=== PATIENT | male | born 1980 | race Caucasian/White ===

== ENCOUNTER 2020-08-10 16:50 | Emergency (ER) | payer BC ==
[2020-08-10] MEDS ORDERED: Sodium Chloride 0.9% 10 ML Syringe FLUSH PRN (17:01)
[2020-08-10] MEDS ORDERED: Sodium Chloride 0.9% 2.5 ML Syringe FLUSH PRN (17:01)
[2020-08-10] MEDS ORDERED: Calcium Gluconate 10% 1 GM/10 ML SDV IVPUSH ONE (17:06)
[2020-08-10] MEDS ORDERED: Iopamidol 755 MG/ML 500 ML Multipack Bottle IVPUSH ONE (17:26)
[2020-08-10 17:32] LABS: BLOOD UREA NITROGEN,BUN 18 mg/dL (7.0-18.0); CARBON DIOXIDE,CO2 20.5 mmol/L (21.0-32.0); CHLORIDE,CL 101 mmol/L (98-107); GLUCOSE RANDOM 133 mg/dL (74-106); LIPASE 169 U/L (73-393); POTASSIUM,K 3.1 mmol/L (3.5-5.1); SODIUM,NA 138 mmol/L (136-148)
[2020-08-10] MEDS ORDERED: Potassium Chloride 20 MEQ Tab.ER PO ONE (17:34)
--- NOTE | 2020-08-10 18:00 | PCM.SN.2 ---
#1 Interpretation EKG Date: 08/10/20 Time: 16:57 Rhythm: NSR Rate (Beats/Min): 80 [place]: Normal P-Wave: Present QRS: Normal ST-T: Normal QT: Normal Comparison: NA - No Prior EKG EKG Interpretation Comments: Sinus Rhythm with S1Q3T3 with T wave inversions in III and aVF #2 Interpretation EKG Date: 08/09/20 Time: 17:06 Rhythm: NSR Rate (Beats/Min): 74 [place]: Normal P-Wave: Present QRS: Normal ST-T: Normal QT: Normal Comparison: No Change EKG Interpretation Comments: Sinus Rhythm with S1Q3T3 with T wave inversions in III and aVF #3 Interpretation EKG Date: 08/09/20 Time: 17:36 Rhythm: NSR Rate (Beats/Min): 81 [place]: Normal P-Wave: Present QRS: Normal ST-T: Normal QT: Normal Comparison: No Change EKG Interpretation Comments: Sinus Rhythm with S1Q3T3 with T wave inversions in III and aVF
--- NOTE | 2020-08-10 18:04 | EDM.PDOC ---
ED HPI GENERAL MEDICAL PROBLEM - General Chief Complaint: Chest Pain Stated Complaint: CHEST PAIN Time Seen by Provider: 08/10/20 16:53 Source of Information: Reports: Patient History Limitations: Reports: No Limitations - History of Present Illness INITIAL COMMENTS - FREE TEXT/NARRATIVE: HISTORY AND PHYSICAL: History of present illness: Patient is a 40-year-old male who presents to the ED today with concern of epigastric abdominal pain that came at 1 PM today. Patient states he was sitting at home and had just finished drinking 2 glasses of milk and a cheese stick when he began feeling sharp upper abdominal pain and thought it was related to indigestion and gas. Patient states that the pain intensified and radiates into his lower abdomen/back. He denies any associated symptoms. Patient states he does drink alcohol daily and has 2 mixed drinks with whiskey and some beers daily but feels he is unable to quantify how much but denies ever having withdraw symptoms. Denies any other health history. Patient denies fever, chills, shortness of breath, or cough. Denies headache, neck stiff ness, change in vision, syncope, or near syncope. Denies nausea, vomiting, diarrhea, constipation, or dysuria. Has not noted any blood in urine or stool. Patient has been eating and drinking appropriately. Review of systems: As per history of present illness and below otherwise all systems reviewed and negative. Past medical history: As per history of present illness and as reviewed below otherwise noncontributory. Surgical history: As per history of present illness and as reviewed below otherwise noncontributory. Social history: See social history for further information Family history: As per history of present illness and as reviewed below otherwise noncon tributory. Physical exam: General: Patient is alert, oriented, and in no acute distress. Patient laying on exam table, does appear flushed but not diaphoretic and holding upper abdomen. Vitals stable, but hypertensive 180s/110s. Patient does have a positive trousseau sign with bp cuff inflation. HEENT: Atraumatic, normocephalic, pupils equal and reactive bilaterally, negative for conjunctival pallor or scleral icterus, mucous membranes moist, TMs normal bilaterally, throat clear, neck supple, nontender, trachea midline. No drooling or trismus noted. No meningeal signs. No hot potato voice noted. Lungs: Clear to auscultation, breath sounds equal bilaterally, chest nontender. Heart: S1S2, regular rate and rhythm without overt murmur Abdomen: Soft, nondistended, nontender. Negative schwab sign. Negative rebound. No pulsatile mass. Negative for masses or hepatosplenomegaly. Negative for costovertebral tenderness. Pelvis: Stable nontender. Genitourinary: Deferred. Rectal: Deferred. Skin: Intact, warm, dry. No lesions or rashes noted. Extremities: Atraumatic, negative for cords or calf pain. Neurovascular unremarkable. Neuro: Awake, alert, oriented. Cranial nerves II through XII unremarkable. Cerebellum unremarkable. Motor and sensory unremarkable throughout. Exam nonfocal. Notes: Dr. Arriaza directly involved in patient care. See Dr. Arriaza dictation for EKG interpretations. Patient initially hypertensive 180s/110s on initial exam. BP rechecked 20 mins later and has come down to 150s/90s without intervention. When patient's blood pressure was being evaluated, he did show a positive trousseau sign sign, calcium given. Upon reevaluation, patient is symptom free (was only symptomatic the first 10 minutes in the ED and remained symptom free throughout entire stay in ED) and no longer having abdominal pain. Initial trop negative and repeat trop negative. BP 140s/90s at time of discharge without intervention. Admission for observation was offered to patient but he declines at this time. All risks vs benefits discussed with patient and expresses understanding. Strict return precautions thoroughly discussed with patient. Voices understanding and is agreeable to plan of care. Denies any further questions or concerns at this time. Diagnostics: EKG x 4, CBC, CMP, UA, ddimer, Lipase, Pt/inr, PTT, CXR, Trop x 2, chest/Abd/pelvic CT angio Therapeutics: Saline lock, GI cocktail, calcium gluconate Prescription: None Impression: Abdominal pain, unspecified, improved Plan: 1. You can alternate ibuprofen and Tylenol as directed for pain and discomfort. 2. Follow up with your primary care provider as discussed. Return to the ED as needed and as discussed. Definitive disposition and diagnosis as appropriate pending reevaluation and review of above. sternum Pain Score (Numeric/FACES): 10 - Related Data Allergies Allergy/AdvReac Type Severity Reaction Status Date / Time No Known Allergies Allergy Verified 08/10/20 16:59 Home Meds: Home Meds . [No Known Home Meds] 12/12/14 [History] Past Medical History - Past Health History Medical/Surgical History: Denies Medical/Surgical History - Infectious Disease History Infectious Disease History: Reports: Chicken Pox ED ROS GENERAL - Review of Systems Review Of Systems: Comprehensive ROS is negative, except as noted in HPI. ED EXAM, GENERAL - Physical Exam Exam: See Below (see dictation) Course - Vital Signs Last Recorded V/S: Last Vital Signs Temp 97.6 F 08/10/20 16:56 Pulse 82 08/10/20 20:23 Resp 18 08/10/20 20:23 BP 157/99 H 08/10/20 20:23 Pulse Ox 96 08/10/20 20:23 - Orders/Labs/Meds Orders: Active Orders 24 hr Category Date Time Status Cardiac Monitoring [RC] . DIRECTED Care 08/10/20 17:01 Active EKG Documentation Completion [RC] STAT Care 08/10/20 17:01 Active EKG Documentation Completion [RC] STAT Care 08/10/20 20:19 Active Ang Abdomen [CT] Stat Exams 08/10/20 17:02 Taken Sodium Chloride 0.9% [Saline Flush] Med 08/10/20 17:01 Active 10 ml FLUSH ASDIRECTED PRN Sodium Chloride 0.9% [Saline Flush] Med 08/10/20 17:01 Active 2.5 ml FLUSH ASDIRECTED PRN Saline Lock Insert [OM.PC] Stat Oth 08/10/20 17:01 Ordered Medication Orders Sodium Chloride (Saline Flush) 10 ml FLUSH ASDIRECTED PRN PRN Reason: Keep Vein Open Last Admin: 08/10/20 17:41 Dose: 10 ml Documented by: ALISHA Sodium Chloride (Saline Flush) 2.5 ml FLUSH ASDIRECTED PRN PRN Reason: Keep Vein Open Last Admin: 08/10/20 17:41 Dose: 2.5 ml Documented by: ALISHA Labs: Laboratory Tests 08/10/20 08/10/20 08/10/20 Range/Units 17:00 17:00 17:00 WBC 12.68 H (4.0-11.0) K/uL RBC 5.80 (4.50-5.90) M/uL Hgb 17.3 H (13.0-17.0) g/dL Hct 49.9 (38.0-50.0) % MCV 86.0 (80.0-98.0) fL MCH 29.8 (27.0-32.0) pg MCHC 34.7 (31.0-37.0) g/dL RDW Std Deviation 39.8 (28.0-62.0) fl RDW Coeff of Leo 13 (11.0-15.0) % Plt Count 312 (150-400) K/uL MPV 10.50 (7.40-12.00) fL Neut % (Auto) 66.2 (48.0-80.0) % Lymph % (Auto) 22.7 (16.0-40.0) % [place] % (Auto) 8.1 (0.0-15.0) % Eos % (Auto) 2.2 (0.0-7.0) % Baso % (Auto) 0.8 (0.0-1.5) % Neut # (Auto) 8.4 H (1.4-5.7) K/uL Lymph # (Auto) 2.9 H (0.6-2.4) K/uL [place] # (Auto) 1.0 H (0.0-0.8) K/uL Eos # (Auto) 0.3 (0.0-0.7) K/uL Baso # (Auto) 0.1 (0.0-0.1) K/uL Nucleated RBC % 0.0 /100WBC Nucleated RBCs # 0 K/uL INR APTT (18.6-31.3) SEC D-Dimer, Quantitative 0.21 (0.0-0.50) mg/L FEU Sodium 138 (136-148) mmol/L Potassium 3.1 L (3.5-5.1) mmol/L Chloride 101 (98-107) mmol/L Carbon Dioxide 20.5 L (21.0-32.0) mmol/L BUN 18 (7.0-18.0) mg/dL Creatinine 1.3 (0.8-1.3) mg/dL Est Cr Clr Drug Dosing 82.08 mL/min Estimated GFR (MDRD) > 60.0 ml/min Glucose 133 H (74-106) mg/dL Calcium 9.3 (8.5-10.1) mg/dL Total Bilirubin 0.4 (0.2-1.0) mg/dL AST 36 (15-37) IU/L ALT 83 H (14-63) IU/L Alkaline Phosphatase 96 (46-116) U/L Troponin I < 0.050 (0.000-0.056) ng/mL Total Protein 8.1 (6.4-8.2) g/dL Albumin 4.3 (3.4-5.0) g/dL Globulin 3.8 (2.6-4.0) g/dL Albumin/Globulin Ratio 1.1 (0.9-1.6) Lipase 169 (73-393) U/L Urine Color Urine Appearance Urine pH (5.0-8.0) Ur Specific [place] (1.001-1.035) Urine Protein (NEGATIVE) mg/dL Urine Glucose (UA) (NEGATIVE) mg/dL Urine Ketones (NEGATIVE) mg/dL Urine Occult Blood (NEGATIVE) Urine Nitrite (NEGATIVE) Urine Bilirubin (NEGATIVE) Urine Urobilinogen (<2.0) EU/dL Ur Leukocyte Esterase (NEGATIVE) 08/10/20 08/10/20 08/10/20 Range/Units 17:00 17:50 19:05 WBC (4.0-11.0) K/uL RBC (4.50-5.90) M/uL Hgb (13.0-17.0) g/dL Hct (38.0-50.0) % MCV (80.0-98.0) fL MCH (27.0-32.0) pg MCHC (31.0-37.0) g/dL RDW Std Deviation (28.0-62.0) fl RDW Coeff of [place] (11.0-15.0) % Plt Count (150-400) K/uL MPV (7.40-12.00) fL Neut % (Auto) (48.0-80.0) % Lymph % (Auto) (16.0-40.0) % [place] % (Auto) (0.0-15.0) % Eos % (Auto) (0.0-7.0) % Baso % (Auto) (0.0-1.5) % Neut # (Auto) (1.4-5.7) K/uL Lymph # (Auto) (0.6-2.4) K/uL [place] # (Auto) (0.0-0.8) K/uL Eos # (Auto) (0.0-0.7) K/uL Baso # (Auto) (0.0-0.1) K/uL Nucleated RBC % /100WBC Nucleated RBCs # K/uL INR 0.98 APTT 22.2 (18.6-31.3) SEC D-Dimer, Quantitative (0.0-0.50) mg/L FEU Sodium (136-148) mmol/L Potassium (3.5-5.1) mmol/L Chloride (98-107) mmol/L Carbon Dioxide (21.0-32.0) mmol/L BUN (7.0-18.0) mg/dL Creatinine (0.8-1.3) mg/dL Est Cr Clr Drug Dosing mL/min Estimated GFR (MDRD) ml/min Glucose (74-106) mg/dL Calcium (8.5-10.1) mg/dL Total Bilirubin (0.2-1.0) mg/dL AST (15-37) IU/L ALT (14-63) IU/L Alkaline Phosphatase (46-116) U/L Troponin I < 0.050 (0.000-0.056) ng/mL Total Protein (6.4-8.2) g/dL Albumin (3.4-5.0) g/dL Globulin (2.6-4.0) g/dL Albumin/Globulin Ratio (0.9-1.6) Lipase (73-393) U/L Urine Color YELLOW Urine Appearance CLEAR Urine pH 6.5 (5.0-8.0) Ur Specific [place] <= 1.005 (1.001-1.035) Urine Protein NEGATIVE (NEGATIVE) mg/dL Urine Glucose (UA) NEGATIVE (NEGATIVE) mg/dL Urine Ketones NEGATIVE (NEGATIVE) mg/dL Urine Occult Blood NEGATIVE (NEGATIVE) Urine Nitrite NEGATIVE (NEGATIVE) Urine Bilirubin NEGATIVE (NEGATIVE) Urine Urobilinogen 0.2 (<2.0) EU/dL Ur Leukocyte Esterase NEGATIVE (NEGATIVE) Meds: Medications Generic Name Dose Route Start Last Admin Trade Name Freq PRN Reason Stop Dose Admin Sodium Chloride 10 ml 08/10/20 17:01 08/10/20 17:41 Saline Flush FLUSH 10 ml ASDIRECTED PRN Administration Keep Vein Open Sodium Chloride 2.5 ml 08/10/20 17:01 08/10/20 17:41 Saline Flush FLUSH 2.5 ml ASDIRECTED PRN Administration Keep Vein Open Discontinued Medications Generic Name Dose Route Start Last Admin Trade Name Freq PRN Reason Stop Dose Admin Calcium Gluconate 1 gm 08/10/20 17:06 08/10/20 17:41 Calcium Gluconate IVPUSH 08/10/20 17:07 1 gm ONETIME ONE Administration Al Hydroxide/Mg Hydroxide 15 0 ml 08/10/20 19:08 08/10/20 19:18 ml/ Metoclopramide HCl 5 mg/ PO 08/10/20 19:09 1 each Lidocaine HCl 5 ml ONETIME ONE Administration Iopamidol 100 ml 08/10/20 17:26 08/10/20 17:27 Isovue Multipack-370 (76%) IVPUSH 08/10/20 17:27 100 ml ONETIME ONE Administration Potassium Chloride 40 meq 08/10/20 17:34 08/10/20 17:43 Klor-Con M20 PO 08/10/20 17:35 40 meq ONETIME ONE Administration Departure - Departure Time of Disposition: 20:17 Disposition: Home, Self-Care 01 Clinical Impression: Abdominal pain Qualifiers: Abdominal location: epigastric Qualified Code(s): R10.13 - Epigastric pain - Discharge Information Referrals: Tim Rodriguez MD [Primary Care Provider] - Forms: ED Department Discharge Additional Instructions: The following information is given to patients seen in the emergency department who are being discharged to home. This information is to outline your options for follow-up care. We provide all patients seen in our emergency department with a follow-up referral. The need for follow-up, as well as the timing and circumstances, are variable depending upon the specifics of your emergency department visit. If you don't have a primary care physician on staff, we will provide you with a referral. We always advise you to contact your personal physician following an emergency department visit to inform them of the circumstance of the visit and for follow-up with them and/or the need for any referrals to a consulting specialist. The emergency department will also refer you to a specialist when appropriate. This referral assures that you have the opportunity for follow-up care with a specialist. All of these measure are taken in an effort to provide you with optimal care, which includes your follow-up. Under all circumstances we always encourage you to contact your private physician who remains a resource for coordinating your care. When calling for follow-up care, please make the office aware that this follow-up is from your recent emergency room visit. If for any reason you are refused follow-up, please contact the [facility] Emergency Department at and asked to speak to the emergency department charge nurse. [facility] [address] [address] [facility] [address] [place] [id number] 1. You can alternate ibuprofen and tylenol as directed for pain and discomfort. 2. Follow up with your primary care provider as discussed. Return to the ED as needed and as discussed. Sepsis Event Note (ED) - Evaluation Sepsis Screening Result: No Definite Risk - Focused Exam Vital Signs: Vital Signs Temp Pulse Resp BP Pulse Ox 08/10/20 20:23 82 18 157/99 H 96 08/10/20 19:20 96 17 144/92 H 97 08/10/20 17:51 85 20 176/96 H 95 08/10/20 17:04 83 155/96 H 100 08/10/20 16:56 97.6 F 79 20 182/111 H 100 - My Orders Last 24 Hours: My Active Orders 08/10/20 17:01 Cardiac Monitoring [RC] . DIRECTED EKG Documentation Completion [RC] STAT Sodium Chloride 0.9% [Saline Flush] 10 ml FLUSH ASDIRECTED PRN Sodium Chloride 0.9% [Saline Flush] 2.5 ml FLUSH ASDIRECTED PRN Saline Lock Insert [OM.PC] Stat 08/10/20 17:02 Ang Abdomen [CT] Stat 08/10/20 20:19 EKG Documentation Completion [RC] STAT - Assessment/Plan Last 24 Hours: My Active Orders 08/10/20 17:01 Cardiac Monitoring [RC] . DIRECTED EKG Documentation Completion [RC] STAT Sodium Chloride 0.9% [Saline Flush] 10 ml FLUSH ASDIRECTED PRN Sodium Chloride 0.9% [Saline Flush] 2.5 ml FLUSH ASDIRECTED PRN Saline Lock Insert [OM.PC] Stat 08/10/20 17:02 Ang Abdomen [CT] Stat 08/10/20 20:19 EKG Documentation Completion [RC] STAT
--- NOTE | 2020-08-10 18:25 | CR ---
INDICATION: Chest pain and SOB. TECHNIQUE: Portable AP image of the chest. COMPARISON: 02/20/2010. FINDINGS: Lungs and pleural spaces clear. Heart, mediastinum and pulmonary vessels normal. No significant osseous abnormality. IMPRESSION: Negative chest. Dictated by Kun Costa MD @ Aug 10 2020 6:18PM Signed by Dr. Kun Costa @ Aug 10 2020 6:23PM
--- NOTE | 2020-08-10 18:35 | CT ---
INDICATION: Chest pain and diaphoresis. Rule out aortic dissection. TECHNIQUE: Volumetric helical scanning of the chest and abdomen performed with 100 cc of Isovue 370 contrast material IV, timing optimized for aortic opacification. Coronal and sagittal reconstructions were obtained. COMPARISON: None. FINDINGS: The aorta is well opacified. The aorta is normal in caliber with no evidence of dissection. The heart size is normal. The lungs are clear. A noncalcified 7 x 3 mm right apical nodular density is demonstrated on image 151 of series 401. No airway abnormality is evident. No pleural effusion is demonstrated. No axillary, mediastinal or hilar adenopathy is apparent. The liver is normal in size, shape and attenuation. No bile duct dilation is evident. The spleen is within normal limits. The adrenal glands are unremarkable. The pancreas is within normal limits. The kidneys are unremarkable. No lymphadenopathy is evident. The visualized bowel is unremarkable. No free fluid is evident. IMPRESSION: 1. Negative for aortic dissection. 2. Clear lungs. 3. Noncalcified 7 x 3 mm right apical nodule. Follow up in accordance with Fleischner Society Guidelines (see below) is recommended. FLEISCHNER SOCIETY GUIDELINES: LOW RISK: - nodule less than 6 mm: No follow-up needed. - nodule 6-8 mm: Initial follow-up CT at 6-12 months and then at 18-24 months if no change. - nodule greater than 8 mm: Follow-up CTs at around 3, 9, and 24 months. Dynamic contrast-enhanced CT, PET, and/or biopsy. MULTIPLE LOW RISK: - nodule less than 6 mm: No follow-up needed. - nodule 6-8 mm: CT at 3-6 months, then consider CT at 18-24 months. - nodule greater than 8 mm: CT at 3-6 months, then consider CT at 18-24 months. HIGH RISK: - nodule less than 6 mm: Follow-up at 12 months. If no change, no further imaging needed. - nodule 6-8 mm: Initial follow-up CT at 3-6 months and then at 9-12 and 24 months if no change. - nodule greater than 8 mm: Follow-up CTs at around 3, 9, and 24 months. Dynamic contrast-enhanced CT, PET, and/or biopsy. MULTIPLE HIGH RISK: - nodule less than 6 mm: Optional CT at 12 months. - nodule 6-8 mm: CT at 3-6 months, then at 18-24 months. - nodule greater than 8 mm: CT at 3-6 months, then at 18-24 months. HIGH RISK is defined as one or more of the following: - at least 20 pack-year smoking history or equivalent second-hand exposure. - personal history of cancer or family history of lung cancer. - occupational exposure (asbestos, beryllium, silica, uranium, radon) - chronic interstitial/fibrotic lung disease. Please note that all CT scans at this facility use dose modulation, iterative reconstruction, and/or weight-based dosing when appropriate to reduce radiation dose to as low as reasonably achievable. Dictated by Kun Costa MD @ Aug 10 2020 6:23PM Signed by Dr. Kun Costa @ Aug 10 2020 6:33PM
[2020-08-10] MEDS ORDERED: Alum Hydrox/Mag Hydrox/Simeth 15 ML, Metoclopramide 5 MG, Lidocaine 2% 5 ML PO ONE ×3 (19:08)
[2020-08-10 20:24] VITALS: BP 157/99; PULSE 82
--- NOTE | 2020-08-10 21:07 | PCM.SN.2 ---
- Free Text/Narrative Note: EKG sinus rhythm this was performed 08/10/2050 at 2050 hrs. Heart rate is 74 axis was 4 IN interval 171 QT interval 409 there is QRS that appears pretty normal with ST and T normal. Compared to 3 prior EKGs done since arrival there was a little fluctuation in the size of the T wave in the lateral precordium but it did not correlate with any pain episodes and he has 2 - troponins.. Impression this EKG does not demonstrate any injury
--- NOTE | 2020-08-15 08:09 | CT ---
EXAM DATE: 08/10/20 PATIENT'S AGE: 40 Patient: LIUDMILA EID Facility: [facility] Site . Site : 1980 Study: CT-Chest Angio WHOLE AORTA-08/10/2020 5:42:30 PM Ordering Physician: Александр Weir Final Report: INDICATION: Chest pain and diaphoresis. Rule out aortic dissection. TECHNIQUE: Volumetric helical scanning of the chest and abdomen performed with 100 cc of Isovue 370 contrast material IV, timing optimized for aortic opacification. Coronal and sagittal reconstructions were obtained. COMPARISON: None. FINDINGS: The aorta is well opacified. The aorta is normal in caliber with no evidence of dissection. The heart size is normal. The lungs are clear. A noncalcified 7 x 3 mm right apical nodular density is demonstrated on image 151 of series 401. No airway abnormality is evident. No pleural effusion is demonstrated. No axillary, mediastinal or hilar adenopathy is apparent. The liver is normal in size, shape and attenuation. No bile duct dilation is evident. The spleen is within normal limits. The adrenal glands are unremarkable. The pancreas is within normal limits. The kidneys are unremarkable. No lymphadenopathy is evident. The visualized bowel is unremarkable. No free fluid is evident. IMPRESSION: 1. Negative for aortic dissection. 2. Clear lungs. 3. Noncalcified 7 x 3 mm right apical nodule. Follow up in accordance with Fleischner Society Guidelines (see below) is recommended. FLEISCHNER SOCIETY GUIDELINES: LOW RISK: - nodule less than 6 mm: No follow-up needed. - nodule 6-8 mm: Initial follow-up CT at 6-12 months and then at 18-24 months if no change. - nodule greater than 8 mm: Follow-up CTs at around 3, 9, and 24 months. Dynamic contrast-enhanced CT, PET, and/or biopsy. MULTIPLE LOW RISK: - nodule less than 6 mm: No follow-up needed. - nodule 6-8 mm: CT at 3-6 months, then consider CT at 18-24 months. - nodule greater than 8 mm: CT at 3-6 months, then consider CT at 18-24 months. HIGH RISK: - nodule less than 6 mm: Follow-up at 12 months. If no change, no further imaging needed. - nodule 6-8 mm: Initial follow-up CT at 3-6 months and then at 9-12 and 24 months if no change. - nodule greater than 8 mm: Follow-up CTs at around 3, 9, and 24 months. Dynamic contrast-enhanced CT, PET, and/or biopsy. MULTIPLE HIGH RISK: - nodule less than 6 mm: Optional CT at 12 months. - nodule 6-8 mm: CT at 3-6 months, then at 18-24 months. - nodule greater than 8 mm: CT at 3-6 months, then at 18-24 months. HIGH RISK is defined as one or more of the following: - at least 20 pack-year smoking history or equivalent second-hand exposure. - personal history of cancer or family history of lung cancer. - occupational exposure (asbestos, beryllium, silica, uranium, radon) - chronic interstitial/fibrotic lung disease. Please note that all CT scans at this facility use dose modulation, iterative reconstruction, and/or weight-based dosing when appropriate to reduce radiation dose to as low as reasonably achievable. Dictated by Kun Costa MD @ Aug 10 2020 6:23PM Signed by: Kun Costa MD @08/10/2020 6:33:53 PM (Electronic Signature) Report Signed by Proxy. SUSHMA
== END 2020-08-10 21:38 | disposition home or self-care (01) ==
LOC: MW.ED 16:50
DX: R10.13 Epigastric pain (principal)
CPT/HCPCS: 36415; 71045; 71275; 74175; 80053; 81003; 83690; 84484; 85025; 85379; 85610; 85730; 93005; 96374; 99284; A9270; J0610; Q9967; 93010

== ENCOUNTER 2022-11-08 06:46 | Day surgery (SDC) | payer BC ==
[~2022-11-08 06:46] MED LIST: Lactated Ringers 1,000 ML IV SCH
[2022-11-08] MEDS ORDERED: Morphine 2 MG/ML SYRINGE IVPUSH PRN (07:23)
[2022-11-08] MEDS ORDERED: Lidocaine 1% 20 ML MDV ONE (07:23)
[2022-11-08] MEDS ORDERED: Metoclopramide 10 MG/2 ML SDV IVPUSH PRN (07:23)
[2022-11-08] MEDS ORDERED: Ondansetron 4 MG/2 ML SDV IVPUSH PRN (07:23)
[2022-11-08] MEDS ORDERED: fentaNYL 50 MCG/ML SDV IVPUSH PRN (07:23)
[2022-11-08] MEDS ORDERED: HYDROmorphone 1 MG/ML Syringe IVPUSH PRN (07:23)
[2022-11-08] MEDS ORDERED: Bupivacaine 0.5% 30 ML SDV ONE (07:23)
[2022-11-08] MEDS ORDERED: Naloxone 0.4 MG/ML SDV IVPUSH PRN (07:23)
[2022-11-08] MEDS ORDERED: Albuterol 0.083% 2.5 MG/3 ML Neb Soln NEB PRN (07:23)
[2022-11-08] MEDS ORDERED: Ondansetron 4 MG/2 ML SDV ONE (07:27)
[2022-11-08] MEDS ORDERED: Lidocaine 1% 5 ML VIAL ONE (07:27)
[2022-11-08] MEDS ORDERED: Propofol 200 MG/20 ML SDV ONE (07:28)
[2022-11-08] MEDS ORDERED: fentaNYL 100 MCG/2 ML SDV ONE (07:28)
[2022-11-08] MEDS ORDERED: Midazolam 1 MG/ML 2 ML SDV ONE (07:43)
[2022-11-08] MEDS ORDERED: propofoL 0 ML ONE (08:05)
[2022-11-08] MEDS ORDERED: Dexamethasone 4 MG/ML 5 ML MDV ONE (08:14)
[2022-11-08] MEDS ORDERED: Ketorolac 30 MG/ML SDV ONE (08:14)
[2022-11-08] MEDS ORDERED: Acetaminophen/HYDROcodone 325-10 MG Tab PO PRN (08:56)
[2022-11-08] MEDS ORDERED: Lactated Ringers 1,000 ML IV SCH (09:00)
[2022-11-08 09:20] VITALS: BP 127/87; PULSE 66
== END 2022-11-08 09:37 | disposition home or self-care (01) ==
LOC: MW.SDS 06:46
PROVIDERS: ATTEND Surgery
DX: L72.0 Epidermal cyst (principal); K21.9 Gastro-esophageal reflux disease without esophagitis; Z79.899 Other long term (current) drug therapy; Z87.891 Personal history of nicotine dependence
CPT/HCPCS: 21552; J1100; J1885; J2250; J2405; J2704; J3010; J3490; J7120

== ENCOUNTER 2025-03-27 12:49 | Emergency (ER) | payer BC ==
[2025-03-27] MEDS ORDERED: Sodium Chloride 0.9% 2.5 ML Syringe FLUSH PRN ×2 (13:01→13:03)
[2025-03-27] MEDS ORDERED: Sodium Chloride 0.9% 10 ML Syringe FLUSH PRN ×2 (13:01→13:03)
[2025-03-27 13:14] LABS: BASOPHILS ABSOLUTE AUTO 0.11 K/uL (0.00-0.20); BASOPHILS PERCENT AUTO 1.1 % (0.0-1.0); EOSINOPHILS ABSOLUTE AUTO 0.20 K/uL (0.00-0.45); EOSINOPHILS PERCENT AUTO 2.0 % (0.0-6.0); IMMATURE GRAN ABSOLUTE AUTO 0.04 K/uL (0.00-0.05); IMMATURE GRAN PERCENT AUTO 0.4 % (0.0-0.4); LYMPHOCYTES ABSOLUTE AUTO 2.75 K/uL (1.00-4.80); LYMPHOCYTES PERCENT AUTO 26.9 % (24.0-44.0); MEAN PLATELET VOLUME 10.6 fL (9.4-12.4); MONOCYTES ABSOLUTE AUTO 0.86 K/uL (0.00-0.80); MONOCYTES PERCENT AUTO 8.4 % (0.0-8.0); NEUTROPHILS ABSOLUTE AUTO 6.26 K/uL (1.80-7.70); NEUTROPHILS PERCENT AUTO 61.2 % (41.0-71.0); NRBC ABSOLUTE 0.00 K/uL (0.00-0.02); NRBC PERCENT 0.0 /100WBC (0.0-0.2); PLATELET COUNT,PLT 304 K/uL (150-400); RED BLOOD CELL COUNT 5.76 M/uL (4.52-5.90); WHITE BLOOD CELL COUNT,WBC 10.22 K/uL (3.9-11.3)
[2025-03-27 13:22] LABS: D-DIMER QUANTITATIVE 0.24 mg/L FEU (0.00-0.50); INR 0.98 (0.86-1.11)
[2025-03-27] MEDS: Ondansetron 4 MG/2 ML SDV IVPUSH ONE (13:30)
[2025-03-27 13:53] LABS: A/G RATIO 1.2 (0.9-1.6); ALANINE AMINOTRANSFERASE,ALT 61 IU/L (14-63); ASPARTATE AMNIOTRANSFERASE,AST 43 IU/L (15-37); BILIRUBIN TOTAL 0.7 mg/dL (0.2-1.0); BLOOD UREA NITROGEN,BUN 14 mg/dL (7.0-18.0); CARBON DIOXIDE,CO2 24.5 mmol/L (21.0-32.0); CHLORIDE,CL 103 mmol/L (98-107); CREATININE 1.4 mg/dL (0.8-1.3); GLUCOSE RANDOM 144 mg/dL (74-106); POTASSIUM,K 3.5 mmol/L (3.5-5.1); PRO B-TYPE NATRIUR PEPT,BNPPRO 31 pg/mL (0-125); PROTEIN TOTAL,TP 7.8 g/dL (6.4-8.2); SODIUM,NA 143 mmol/L (136-148); TSH ULTRASENSITIVE 2.09 uIU/mL (0.36-3.74)
[2025-03-27 14:04] LABS: ESTIMATED GFR 63 mL/min (>60)
[2025-03-27] MEDS: Iopamidol 755 MG/ML 500 ML Multipack Bottle IVPUSH STA (14:18)
[2025-03-27 15:46] VITALS: BP 144/91
[2025-03-27 17:53] VITALS: PULSE 63
== END 2025-03-27 17:58 | disposition home or self-care (01) ==
LOC: MW.ED 12:49
DX: K80.20 Calculus of gallbladder without cholecystitis without obstruction (principal); R07.9 Chest pain, unspecified; E86.0 Dehydration; K21.9 Gastro-esophageal reflux disease without esophagitis; Z79.899 Other long term (current) drug therapy; Z75.3 Unavailability and inaccessibility of health-care facilities
CPT/HCPCS: 36415; 71045; 71275; 74174; 76705; 80053; 83690; 83735; 83880; 84443; 84484; 85025; 85379; 85610; 93005; 96361; 96374; 96375; 99285; A9270; J2270; J2405; J7030; Q9967; 93010; 99284

== ENCOUNTER 2025-04-01 06:41 | Day surgery (SDC) | payer BC ==
[2025-04-01] MEDS: Lactated Ringers 1,000 ML IV SCH (07:00)
[2025-04-01] MEDS ORDERED: dexmedeTOMIDine HCl 200 MCG/2 ML SDV ONE (08:18)
[2025-04-01] MEDS ORDERED: propofoL 500 MG/50 ML 50 ML ONE (08:18)
[2025-04-01] MEDS ORDERED: Lactated Ringers 1,000 ML IV SCH (08:30)
[2025-04-01 08:51] VITALS: BP 116/76; PULSE 71
== END 2025-04-01 08:58 | disposition home or self-care (01) ==
LOC: MW.SDS 06:41
PROVIDERS: ATTEND Surgery
DX: K29.50 Unspecified chronic gastritis without bleeding (principal); K21.00 Gastro-esophageal reflux disease with esophagitis, without bleeding; Z79.899 Other long term (current) drug therapy
CPT/HCPCS: 43239; J2704; J7120; 00731

== ENCOUNTER 2025-04-11 06:31 | Day surgery (SDC) | payer BC ==
[~2025-04-11 06:31] MED LIST changes: +Albuterol 0.083% 2.5 MG/3 ML Neb Soln NEB PRN; -Lactated Ringers 1,000 ML IV SCH; +Naloxone 0.4 MG/ML SDV IVPUSH PRN; +Ondansetron 4 MG/2 ML SDV IVPUSH PRN; +fentaNYL 50 MCG/ML SDV IVPUSH PRN
[2025-04-11] MEDS: Lactated Ringers 1,000 ML IV SCH (07:05)
[2025-04-11] MEDS ORDERED: Succinylcholine/Sod PF 100 MG/5 ML SYRINGE IV ONE (07:11)
[2025-04-11] MEDS ORDERED: Midazolam 1 MG/ML 2 ML SDV ONE (07:12)
[2025-04-11] MEDS ORDERED: fentaNYL 100 MCG/2 ML SDV ONE ×2 (07:12→09:17)
[2025-04-11] MEDS ORDERED: Propofol 200 MG/20 ML SDV ONE (07:12)
[2025-04-11] MEDS ORDERED: Ropivacaine 0.5% 5 MG/ML 30 ML SDV ONE (07:13)
[2025-04-11] MEDS ORDERED: dexmedeTOMIDine HCl 200 MCG/2 ML SDV ONE (07:13)
[2025-04-11] MEDS ORDERED: Dexamethasone 4 MG/ML 5 ML MDV ONE (07:16)
[2025-04-11] MEDS ORDERED: Ondansetron 4 MG/2 ML SDV ONE (07:16)
[2025-04-11] MEDS ORDERED: Indocyanine Green 25 MG SDV ONE (08:29)
[2025-04-11] MEDS ORDERED: ePHEDrine 50 MG/ML SDV ONE (08:33)
[2025-04-11] MEDS ORDERED: Ketorolac 30 MG/ML SDV ONE (09:25)
[2025-04-11] MEDS ORDERED: Acetaminophen/HYDROcodone 325-5 MG Tab PO PRN (09:42)
[2025-04-11] MEDS ORDERED: Lactated Ringers 1,000 ML IV SCH (09:45)
[2025-04-11 11:04] VITALS: BP 100/61; PULSE 67
== END 2025-04-11 10:55 | disposition home or self-care (01) ==
LOC: MW.SDS 06:31
PROVIDERS: ATTEND Surgery
DX: K80.10 Calculus of gallbladder with chronic cholecystitis without obstruction (principal); K21.9 Gastro-esophageal reflux disease without esophagitis; Z79.899 Other long term (current) drug therapy
CPT/HCPCS: 00790; 64488; J0665; J0690; J1100; J1596; J1885; J2003; J2250; J2405; J2704; J2795; J3010; J3490; J7120